=== PATIENT | male | born 1995 | race African-American/Black ===

== ENCOUNTER 2019-01-14 15:15 | Emergency (ER) | payer SELFPAY ==
--- NOTE | 2019-01-14 15:42 | ER Document Report ---
ED Medical Screen (RME) - General Chief Complaint: Abdominal Pain Stated Complaint: POSSIBLE HERNIA Time Seen by Provider: 01/14/19 15:36 Primary Care Provider: JUNI CALDWELL PA-C [Primary Care Provider] - Follow up as needed - HPI Notes: 01/14/19 15:41 Patient is a 23-year-old male with no significant past medical history who presents emergency department complaining of possible hernia in his right inguinal area going into his scrotal sac that is been present for 4-5 years. Patient states that he has had increased pain and discomfort in this area over the last several days. Patient states that he has never had this evaluated as he did not have Medicaid until recently. Denies drug allergies. Patient states that he is still able to urinate and have normal bowel movements, but has not velez d to urinate today. No other surgical history to his abdomen. Denies VELEZ, fever, neck pain, URI, CP, SOB, or rash. I have treated and performed a rapid initial assessment of this patient. A comprehensive ED assessment and evaluation of the patient, analysis of test results and completion of medical decision making process will be conducted by additional ED providers. PHYSICAL EXAMINATION: GENERAL: Well-appearing, well-nourished and in no acute distress. A&Ox4. Answers questions appropriately. LUNGS: Breath sounds clear to auscultation bilaterally and equal. No wheezes rales or rhonchi. HEART: Regular rate and rhythm without murmurs, rubs, gallops. : large bulging in the scrotal sac. No urethral discharge or erythema noted. - Related Data Allergies/Adverse Reactions: No Known Allergies Allergy (Unverified 01/14/19 15:19) Physical Exam - Vital signs Vitals: Temp Pulse Resp BP Pulse Ox 98.2 F 79 18 148/92 H 100 01/14/19 15:34 01/14/19 15:34 01/14/19 15:34 01/14/19 15:34 01/14/19 15:34 Course - Vital Signs Vital signs: Temp Pulse Resp BP Pulse Ox 98.2 F 79 18 148/92 H 100 01/14/19 15:34 01/14/19 15:34 01/14/19 15:34 01/14/19 15:34 01/14/19 15:34 Doctor's Discharge - Discharge Referrals: JUNI CALDWELL PA-C [Primary Care Provider] - Follow up as needed
[2019-01-14 16:53] LABS: APPEARANCE,URINE SLIGHTLY-CLOUDY; BILIRUBIN,URINE NEGATIVE (NEGATIVE); COLOR,URINE YELLOW; GLUCOSE, URINE NEGATIVE (NEGATIVE); KETONES,URINE NEGATIVE (NEGATIVE); LEUKOCYTE ESTERASE,URINE NEGATIVE (NEGATIVE); NITRITE,URINE NEGATIVE (NEGATIVE); PROTEIN,URINE NEGATIVE (NEGATIVE); URINE SPECIFIC GRAVITY 1.028; UROBILINOGEN,URINE NEGATIVE mg/dL (<2.0)
[2019-01-14 16:58] LABS: ABSOLUTE BASOPHILS # (AUTO) 0.1 10^3/uL (0.0-0.2); ABSOLUTE EOSINOPHILS # (AUTO) 0.4 10^3/uL (0.0-0.6); ABSOLUTE LYMPHOCYTES (AUTO) 3.6 10^3/uL (0.5-4.7); ABSOLUTE MONOCYTES (AUTO) 0.6 10^3/uL (0.1-1.4); ABSOLUTE NEUT (AUTO) 4.3 10^3/uL (1.7-8.2); EOSINOPHILS % (AUTO) 4.2 % (0-6); HEMATOCRIT 52.3 % (37.9-51.0); HEMOGLOBIN 17.8 g/dL (13.5-17.0); LYMPHOCYTES % (AUTO) 39.8 % (13-45); MEAN CORPUSCULAR HEMOGLOBIN 28.7 pg (27.0-33.4); MEAN CORPUSCULAR VOLUME 85 fl (80-97); MONOCYTES % (AUTO) 6.6 % (3-13); PLATELET COUNT 215 10^3/uL (150-450); RED BLOOD COUNT 6.19 10^6/uL (4.35-5.55); RED CELL DISTRIBUTION WIDTH 14.6 % (11.5-14.0); SEGMENTED NEUTROPHILS % (AUTO) 48.4 % (42-78); TOTAL CELLS COUNTED % (AUTO) 100 %
[2019-01-14 17:07] LABS: ALANINE AMINOTRANSFERASE 82 U/L (21-72); ALBUMIN 4.9 g/dL (3.5-5.0); ALKALINE PHOSPHATASE 69 U/L (38-126); ANION GAP 8 (5-19); ASPARTATE AMINO TRANSFERASE 62 U/L (17-59); BILIRUBIN,DIRECT 0.3 mg/dL (0.0-0.4); BILIRUBIN,TOTAL 0.6 mg/dL (0.2-1.3); BLOOD UREA NITROGEN 12 mg/dL (7-20); CALCIUM 10.4 mg/dL (8.4-10.2); CARBON DIOXIDE 30 mmol/L (22-30); CHLORIDE 102 mmol/L (98-107); GLUCOSE 87 mg/dL (75-110); POTASSIUM 4.2 mmol/L (3.6-5.0); SODIUM 140.3 mmol/L (137-145)
--- NOTE | 2019-01-14 18:00 | RADIOLOGY REPORT (SQ) ---
EXAM DESCRIPTION: U/S SCROTUM W/DOPPLER COMPLETED DATE/TIME: 01/14/2019 5:43 pm REASON FOR STUDY: ?large hernia COMPARISON: 10/05/2013 scrotal ultrasound TECHNIQUE: Static and realtime oliveira scale imaging of the scrotum and testes. Selected color Doppler and spectral images recorded to document blood flow. LIMITATIONS: None. FINDINGS: RIGHT: TESTICLE: Normal size. Normal echotexture. Normal blood flow. No mass. EPIDIDYMIS: Normal. HYDROCELE OR VARICOCELE: No. HERNIA OR EXTRA-TESTICULAR MASS: No. OTHER: There is a larger right fatty mass in the inguinal region measuring at least 15 cm in size. D ifferential is massive right inguinal hernia containing fat versus a tumor along the right spermatic cord. Consider CT abdomen pelvis with IV and oral contrast for followup. LEFT: TESTICLE: Normal size. Normal echotexture. Normal blood flow. No mass. EPIDIDYMIS: Normal. HYDROCELE OR VARICOCELE: No. HERNIA OR EXTRA-TESTICULAR MASS: No. OTHER: No other significant finding. IMPRESSION: No ultrasound evidence of testicular torsion or primary testicular mass. Right inguinal mass at least 13 cm in size. This could represent a massive inguinal hernia with fat. A primary tumor along the right spermatic cord is also possible. Enlarged adenopathy along the ing uinal region could mimic this appearance. Consider CT abdomen pelvis with IV and oral contrast for f elian. TECHNICAL DOCUMENTATION: JOB ID: [id number] [employer] All Rights Reserved Reading location - IP/workstation name: [email or web address]
--- NOTE | 2019-01-14 19:25 | ER Document Report ---
ED General - General Chief Complaint: Abdominal Pain Stated Complaint: POSSIBLE HERNIA Time Seen by Provider: 01/14/19 15:36 Primary Care Provider: KG MI MD [[employer]ER] - Follow up in 3-5 days WILBERT JEFFREY MD [ACTIVE STAFF] - Follow up in 3-5 days Notes: Patient is a 23-year-old male that presents to the emergency department for chief complaint of right hernia pain. Patient states he had an inguinal hernia for about 5 years, it is kind of let it go over that period of time, he is been having more pain over the past 3 days. He also states that his boss has told him that he needs to have this checked out because it is a viability on his job. He has had a large scrotal mass and swelling for 5 years now, it has been about the same size without changing. Denies any nausea or vomiting, or difficulty having bowel movements. He states the pain at this time is a 2 out of 10 describes it as an aching sensation with occasionally sharp and radiate up towards the back. Denies any any fevers, chills, night sweats, dysuria or hematuria. Past Medical History: Denies chronic medical conditions Past Surgical History: Denies surgical history Social History: Admits to smoking cigarettes, and occasional alcohol use, denies illicit drug use. Family History: Reviewed and noncontributory for presenting illness Allergies: Reviewed, see documented allergy list. REVIEW OF SYSTEMS: Other than noted above, the 12 point review of systems was reviewed with the patient and were negative, all pertinent findings are included in the HPI. PHYSICAL EXAMINATION: Vital signs reviewed, nursing noted reviewed. GENERAL: Well-appearing, well-nourished and in no acute distress. HEAD: Atraumatic, normocephalic. EYES: Eyes appear normal, extraocular movements intact, sclera anicteric, conjunctiva are normal. ENT: nares patent, oropharynx clear without exudates. Moist mucous membranes. NECK: Normal range of motion, supple without lymphadenopathy LUNGS: Breath sounds clear to auscultation bilaterally and equal. No wheezes rales or rhonchi. HEART: Regular rate and rhythm without murmurs ABDOMEN: Soft, nontender, normoactive bowel sounds. No rebound, guarding, or rigidity. No masses appreciated. EXTREMITIES: Nontender, good range of motion, no pitting or edema. Male genital exam: Patient is noted to have a large scrotal inguinal hernia, palpable bowel, no significant tenderness to palpation. The left testicle is nontender, the right testicle nontender, intact bilateral cremasteric reflex, no discharge at the penile meatus, otherwise unremarkable exam. NEUROLOGICAL: No focal neurological deficits. Moves all extremities spontaneously Motor and sensory grossly intact on exam. PSYCH: Normal mood, normal affect. SKIN: Warm, Dry, normal turgor, no rashes or lesions noted on exposed skin - Related Data Allergies/Adverse Reactions: No Known Allergies Allergy (Unverified 01/14/19 15:19) Past Medical History - Social History Smoking Status: Current Every Day Smoker Family History: Reviewed & Not Pertinent Patient has suicidal ideation: No Patient has homicidal ideation: No Renal/ Medical History: Denies: Hx Peritoneal Dialysis Physical Exam - Vital signs Vitals: Temp Pulse Resp BP Pulse Ox 98.2 F 79 18 148/92 H 100 01/14/19 15:34 01/14/19 15:34 01/14/19 15:34 01/14/19 15:34 01/14/19 15:34 Course - Re-evaluation Re-evalutation: Patient seen and examined vital signs reviewed. Laboratory data and/or imaging were ordered as appropriate for the patient's presenting symptoms and complaint, with consideration of any critical or life threatening conditions that may be associated with their obtained history and exam as noted above. Results were reviewed when available and demonstrated large scrotal mass, concerning for inguinal hernia, I did have evaluate the patient at bedside given his physical exam findings, he stated that the hernia does not appear to be obstructed which I agreed with, although not not reducible, it is large, he recommended outpatient follow-up with the surgical clinic to have it repaired on an outpatient basis. His urinalysis and blood work was unremarkable The patient was re-evaluated and was stable Evaluation was most consistent with large right-sided inguinal hernia Results were discussed with the patient at this point, after careful co nsideration I feel that that patient can be discharged from the emergency department, the patient was educated treatments and reasons to return to the emergency department based on their presumed diagnosis as noted above, they were advised to followup with a primary care physician in 2-3 days. Patient was agreeable to plan of care. *Note is created using voice recognition software and may contain spelling, syntax or grammatical errors. Laboratory 01/14/19 01/14/19 01/14/19 16:10 16:10 16:10 WBC 9.0 RBC 6.19 H Hgb 17.8 H Hct 52.3 H MCV 85 MCH 28.7 MCHC 34.0 RDW 14.6 H Plt Count 215 Seg Neutrophils % 48.4 Lymphocytes % 39.8 Monocytes % 6.6 Eosinophils % 4.2 Basophils % 1.0 Absolute Neutrophils 4.3 Absolute Lymphocytes 3.6 Absolute Monocytes 0.6 Absolute Eosinophils 0.4 Absolute Basophils 0.1 Sodium 140.3 Potassium 4.2 Chloride 102 Carbon Dioxide 30 Anion Gap 8 BUN 12 Creatinine 0.98 Est GFR ( Amer) > 60 Est GFR (Non-Af Amer) > 60 Glucose 87 Calcium 10.4 H Total Bilirubin 0.6 Direct Bilirubin 0.3 Neonat Total Bilirubin Not Reportable Neonat Direct Bilirubin Not Reportable Neonat Indirect Bili Not Reportable AST 62 H ALT 82 H Alkaline Phosphatase 69 Total Protein 9.0 H Albumin 4.9 Urine Color YELLOW Urine Appearance SLIGHTLY-CLOUDY Urine pH 6.0 Ur Specific [place] 1.028 Urine Protein NEGATIVE Urine Glucose (UA) NEGATIVE Urine Ketones NEGATIVE Urine Blood NEGATIVE Urine Nitrite NEGATIVE Urine Bilirubin NEGATIVE Urine Urobilinogen NEGATIVE Ur Leukocyte Esterase NEGATIVE Urine WBC (Auto) 1 Urine RBC (Auto) 2 Squamous Epi Cells Auto <1 Urine Mucus (Auto) FEW Urine Ascorbic Acid NEGATIVE Scrotum Ultrasound 01/14/19 15:40 IMPRESSION: No ultrasound evidence of testicular torsion or primary testicular mass. Right inguinal mass at least 13 cm in size. This could represent a massive inguinal hernia with fat. A primary tumor along the right spermatic cord is also possible. Enlarged adenopathy along the inguinal region could mimic this appearance. Consider CT abdomen pelvis with IV and oral contrast for followup. - Vital Signs Vital signs: Temp Pulse Resp BP Pulse Ox 98.2 F 79 18 148/92 H 100 01/14/19 15:34 01/14/19 15:34 01/14/19 15:34 01/14/19 15:34 01/14/19 15:34 - Laboratory Result Diagrams: 01/14/19 16:10 01/14/19 16:10 Laboratory results interpreted by me: 01/14/19 01/14/19 16:10 16:10 RBC 6.19 H Hgb 17.8 H Hct 52.3 H RDW 14.6 H Calcium 10.4 H AST 62 H ALT 82 H Total Protein 9.0 H Discharge - Discharge Clinical Impression: Right inguinal hernia Condition: Stable Disposition: HOME, SELF-CARE Instructions: Hernia (OM) Additional Instructions: Please follow-up with the surgical clinic, to have your hernia addressed as soon as possible. If you have vomiting, or you are not passing gas or having bowel movements, please return to the emergency department sooner. Referrals: KG MI MD [[employer]ER] - Follow up in 3-5 days WILBERT JEFFREY MD [ACTIVE STAFF] - Follow up in 3-5 days
[2019-01-14 19:34] VITALS: BP 162/84
== END 2019-01-14 19:34 | disposition home or self-care (01) ==
LOC: ER 15:15
DX: K40.90 Unilateral inguinal hernia, without obstruction or gangrene, not specified as recurrent (principal); F17.210 Nicotine dependence, cigarettes, uncomplicated
CPT/HCPCS: 36415; 76870; 80053; 81001; 85025; 93976; 99284